=== PATIENT | female | born 1965 | race Caucasian/White ===

== ENCOUNTER → 2017-02-26 | Outpatient (CLI) | payer OTHER | LOC: M OUTALCOH 08:28 | PROVIDERS: ATTEND Psychiatry & Neurology Psychiatry | DX: Z71.41 Alcohol abuse counseling and surveillance of alcoholic (principal); F10.20 Alcohol dependence, uncomplicated ==

== ENCOUNTER 2017-03-06 09:00 | Outpatient (RCR) | payer MEDICAID, OTHER | END 2017-04-03 | LOC: M OUTALCOH 03-13 14:00 | DX: F10.20 Alcohol dependence, uncomplicated (principal) ==

== ENCOUNTER → 2017-05-27 | Outpatient (CLI) | payer MEDICAID | LOC: M OUTALCOH 15:28 | DX: F10.20 Alcohol dependence, uncomplicated (principal) ==

== ENCOUNTER 2017-06-03 10:48 | Outpatient (RCR) | payer MEDICAID | END 2017-06-04 | LOC: M OUTALCOH 10:48 | DX: F10.20 Alcohol dependence, uncomplicated (principal) ==

== ENCOUNTER 2017-06-12 14:00 | Outpatient (RCR) | payer MEDICAID | END 2017-07-02 | LOC: M OUTALCOH 06-16 08:45 | DX: F10.20 Alcohol dependence, uncomplicated (principal) ==

== ENCOUNTER 2017-07-04 09:14 | Outpatient (RCR) | payer MEDICAID | END 2017-08-02 | LOC: M OUTALCOH 09:14 | DX: F10.20 Alcohol dependence, uncomplicated (principal) | CPT/HCPCS: 90834 ==

== ENCOUNTER 2017-08-04 14:07 | Outpatient (RCR) | payer MEDICAID | END 2017-09-01 | LOC: M OUTALCOH 14:07 | DX: F10.20 Alcohol dependence, uncomplicated (principal) | CPT/HCPCS: 90834 ==

== ENCOUNTER 2017-09-02 09:18 | Outpatient (RCR) | payer MEDICAID | END 2017-10-02 | LOC: M OUTALCOH 09:18 | DX: F10.20 Alcohol dependence, uncomplicated (principal) ==

== ENCOUNTER 2017-10-03 13:19 | Outpatient (RCR) | payer MEDICAID | END 2017-11-01 | LOC: M OUTALCOH 10-06 09:00 | DX: F10.20 Alcohol dependence, uncomplicated (principal) ==

== ENCOUNTER 2017-11-03 14:30 | Outpatient (RCR) | payer MEDICAID, OTHER | END 2017-12-02 | LOC: M OUTALCOH 11-14 16:00 | DX: F10.20 Alcohol dependence, uncomplicated (principal) ==

== ENCOUNTER → 2017-12-12 | Outpatient (CLI) | payer OTHER | LOC: M WUC 14:57 | DX: R07.81 Pleurodynia (principal) | CPT/HCPCS: 71101 ==

== ENCOUNTER → 2017-12-12 | Outpatient (REF) | payer OTHER ==
[2017-12-12 19:25] LABS: BASO % 0.2 % (0.0-1.0); EOS # 0.1 10^3/uL (0.0-0.50); EOS % 0.7 % (0.0-3.0); HEMOGLOBIN 12.7 g/dl (12.0-15.5); IMMATURE GRANULOCYTE % 0.2 % (0-3.0); LYMPH # 2.3 10^3/uL (1.5-4.5); LYMPH % 25.5 % (24.0-44.0); MEAN CORPUSCULAR HEMOGLOBIN 29.3 pg (27.0-33.0); MEAN CORPUSCULAR HGB CONC 33.4 g/dl (32.0-36.5); MEAN CORPUSCULAR VOLUME 87.8 fl (80.0-96.0); MONO # 0.6 10^3/uL (0.0-0.8); MONO % 6.1 % (0.0-5.0); NEUTROPHILS # 6.1 10^3/uL (1.8-7.7); NEUTROPHILS % 67.3 % (36.0-66.0); PLATELET COUNT, AUTOMATED 219 10^3/uL (150-450); RED BLOOD COUNT 4.33 10^6/uL (4.00-5.40); RED CELL DISTRIBUTION WIDTH 13.3 % (11.5-14.5); WHITE BLOOD COUNT 9.1 10^3/uL (4.0-10.0)
[2017-12-12 19:28] LABS: ALBUMIN/GLOBULIN RATIO 1.21 (1.00-1.93); ALKALINE PHOSPHATASE 69 U/L (45-117); ALT/SGPT 29 U/L (12-78); ANION GAP 6 MEQ/L (8-16); AST/SGOT 20 U/L (7-37); BILIRUBIN,TOTAL 0.5 MG/DL (0.2-1.0); BLOOD UREA NITROGEN 12 MG/DL (7-18); CARBON DIOXIDE LEVEL 29 MEQ/L (21-32); CHLORIDE LEVEL 105 MEQ/L (98-107); CREATININE FOR GFR 0.73 MG/DL (0.55-1.30); GLOMERULAR FILTRATION RATE > 60.0 (>51); GLUCOSE, FASTING 92 MG/DL (70-100); POTASSIUM SERUM 4.4 MEQ/L (3.5-5.1); SODIUM LEVEL 140 MEQ/L (136-145); TOTAL PROTEIN 7.3 GM/DL (6.4-8.2)
== END ==
LOC: M LAB REF 16:54
DX: F10.10 Alcohol abuse, uncomplicated (principal); E03.9 Hypothyroidism, unspecified

== ENCOUNTER 2018-01-12 09:14 | Outpatient (RCR) | payer OTHER | END 2018-02-01 | LOC: M OUTALCOH 01-19 16:00 | DX: F10.20 Alcohol dependence, uncomplicated (principal) ==

== ENCOUNTER 2018-02-02 11:14 | Outpatient (RCR) | payer OTHER | END 2018-03-04 | LOC: M OUTALCOH 02-09 16:00 | DX: F10.20 Alcohol dependence, uncomplicated (principal) ==

== ENCOUNTER 2018-03-12 15:30 | Outpatient (RCR) | payer OTHER | END 2018-04-03 | LOC: M OUTALCOH 15:30 | DX: F10.20 Alcohol dependence, uncomplicated (principal) ==

== ENCOUNTER 2018-05-28 09:30 | Outpatient (RCR) | payer OTHER | END 2018-06-04 | LOC: M OUTALCOH 09:30 | PROVIDERS: ATTEND Psychiatry & Neurology Psychiatry | DX: F10.20 Alcohol dependence, uncomplicated (principal) ==

== ENCOUNTER 2018-06-24 10:57 | Outpatient (RCR) | payer OTHER | END 2018-07-02 | LOC: M OUTALCOH 10:57 | PROVIDERS: ATTEND Psychiatry & Neurology Psychiatry | DX: F10.20 Alcohol dependence, uncomplicated (principal) ==

== ENCOUNTER → 2018-06-30 | Outpatient (CLI) | payer OTHER | LOC: M OUTALCOH 09:24 | PROVIDERS: ATTEND Psychiatry & Neurology Psychiatry | DX: Z13.9 Encounter for screening, unspecified (principal) ==

== ENCOUNTER 2018-07-29 16:00 | Outpatient (RCR) | payer OTHER | END 2018-08-02 | LOC: M OUTALCOH 16:00 | PROVIDERS: ATTEND Psychiatry & Neurology Psychiatry | DX: F10.20 Alcohol dependence, uncomplicated (principal) ==

== ENCOUNTER → 2019-02-11 | Outpatient (CLI) | payer OTHER ==
--- NOTE | 2019-02-11 11:19 | REP ---
PA and lateral chest: Comparisons are 12/12/2017 and 12/21/2023. The lung flores are chronically hyperinflated, unchanged, but otherwise clear. Cardiac size is normal. The yulisa, mediastinum, skeletal structures are unremarkable. Impression: Negative PA and lateral chest except for chronic hyperinflation. There is no change from the comparison studies. Electronically Signed by Chris Barlow MD 02/11/2019 11:10 A
== END ==
LOC: M WUC 10:54
PROVIDERS: ATTEND Nurse Practitioner Adult Health
DX: J18.9 Pneumonia, unspecified organism (principal)

== ENCOUNTER → 2019-04-29 | Outpatient (CLI) | payer OTHER ==
--- NOTE | 2019-04-29 09:06 | REPMRS ---
Patient History The patient states she had a clinical breast exam in April 2019. No known family history of cancer. 3D TOMOSYNTHESIS WAS PERFORMED. [facility] lifetime [facility] for [facility] is 10.5%. Digital Mammo Screening Bilat: April 29, 2019 - Exam #: [id number] Bilateral CC and MLO view(s) were taken. Technologist: Veronique Magallanes, Technologist Prior study comparison: April 05, 2016, bilateral digital mammo screening bilat performed at [facility]. FINDINGS: The breast tissue is heterogeneously dense. This may lower the sensitivity of mammography. There has been no change in the appearance of the mammogram from the prior studies. There is a moderate amount of residual fibroglandular tissue which is fairly symmetric. There is no interval development of dominant mass, areas of architectural distortion, or clustered microcalcification typical of malignancy. Assessment: BI-RADS/ACR category 1 mammogram. Negative Mammogram. Recommendation Routine screening mammogram in 1 year (for women over age 40). This mammogram was interpreted with the aid of an FDA-approved computer-aided dectection system. Electronically Signed By: Chris Oviedo MD 04/29/19 0952
== END ==
LOC: M RAD 08:08
PROVIDERS: ATTEND Nurse Practitioner Adult Health
DX: Z12.31 Encounter for screening mammogram for malignant neoplasm of breast (principal)

== ENCOUNTER → 2019-04-29 | Outpatient (CLI) | payer OTHER ==
--- NOTE | 2019-04-29 09:37 | REP ---
ULTRASOUND ABDOMEN: Real-time sonographic evaluation of the abdomen was performed. Gallbladder demonstrates no evidence of intraluminal sludge or calculi, wall thickening, or pericholecystic fluid. There is no intrahepatic or extrahepatic biliary dilatation, common bile duct measuring 6 mm. The liver and pancreas demonstrates no gross mass. Spleen is normal in size with no intrinsic abnormality, length us 6.8 cm. Kidneys are normal in size and echotexture, right kidney measuring 11.7 x 5.4 x 4.0 cm and left kidney 11.9 x 5.1 x 6.7 cm. There is no renal mass, hydronephrosis. Abdominal aorta demonstrates mild atherosclerotic plaquing with no aneurysm. There is ectasia of the mid aspect 2.8 cm maximum AP diameter. Proximally the abdominal aorta has a maximum AP diameter of 2.5 cm and distally 2.0 cm. There is no ascites. IMPRESSION: Essentially negative abdominal ultrasound. Electronically Signed by Chris Oviedo MD 04/29/2019 12:28 P
== END ==
LOC: M RAD 08:04
PROVIDERS: ATTEND Surgery
DX: R19.5 Other fecal abnormalities (principal); K44.9 Diaphragmatic hernia without obstruction or gangrene

== ENCOUNTER → 2019-05-14 | Outpatient (CLI) | payer OTHER ==
--- NOTE | 2019-05-14 10:07 | REP ---
ULTRASOUND ANTERIOR ABDOMINAL WALL: Real-time sonographic evaluation of the anterior wall performed in the region of the umbilicus for a suspected hernia. There is a defect in the midline of the abdominal wall at the umbilicus. Diameter of defect is about 11 mm. There is herniation of peritoneal fat into the anterior abdominal but no bowel is present. Hernia is nonreducible. There is no significant change with Valsalva maneuver. IMPRESSION: Umbilical hernia contains fat but no bowel. Defect is approximately 1 cm in diameter. Electronically Signed by Chris Oviedo MD 05/15/2019 03:12 P
== END ==
LOC: M RAD 08:54
PROVIDERS: ATTEND Surgery
DX: K42.0 Umbilical hernia with obstruction, without gangrene (principal)

== ENCOUNTER → 2019-06-10 | Outpatient (CLI) | payer OTHER ==
[~2019-06-10] MED LIST: ACAM0.05 PO; ALBU8.5H INH; BUSP1TAB PO; DULO1CAP6 PO; LEVO175T2 PO; NALT50TA4 PO; NEUR600T PO; PRAV10TA3 PO; TRAZ-257 PO
--- NOTE | 2019-06-11 20:04 | ECGEPIP ---
[facility] Test Date: 2019-06-10 Pat Name: IDALIA CHRISTINE Department: Room: - Gender: Female Sheep Sticker: MARTY : [id number] Requested By: JAN Fofana Order Number: [id number] Reading MD: Linden Carrera Measurements Intervals [place] Rate: 73 P: 77 AK: 168 QRS: 95 QRSD: 109 T: 60 QT: 392 QTc: 433 Interpretive Statements SINUS RHYTHM BORDERLINE RIGHT AXIS DEVIATION NO PRIOR Electronically Signed on 06-11-2019 20:04:23 EST by Linden Carrera
== END ==
LOC: M EKG 09:56
PROVIDERS: ATTEND Surgery
DX: E03.9 Hypothyroidism, unspecified (principal)

== ENCOUNTER 2019-06-14 10:25 | Day surgery (SDC) | payer OTHER ==
[~2019-06-14] VITALS: Ht 167.6 cm; Wt 62.1 kg
[~2019-06-14 10:25] MED LIST changes: +ACETAMINOPHEN 1000MG 100ML IV BTL (OFIRMEV) (J0131 PER 10MG) As Ordered ONE; +LIDOCAINE 1% MDV 20ML VIAL SQ PRN; +LIDOCAINE 2% INJ 100 MG/5 ML SDV (FOR ANES.) As Ordered ONE; +LR 1,000 ML IV ONE; +MIDAZOLAM INJ 2 MG/2 ML VIAL (J2250) As Ordered ONE; +ONDANSETRON 4MG/2ML VIAL (J2405) As Ordered ONE; +ROCURONIUM BROMIDE 50 MG/5 ML VIAL As Ordered ONE; +SUGAMMADEX SODIUM 500 MG/5 ML VIAL (BRIDION) As Ordered ONE; +ceFAZolin SOD 2 GM in IV 1 EA IV ONE; +dexameTHASONE 4 MG/ML 1ML VIAL (J1100) As Ordered ONE; +fentaNYL 250 MCG/5 ML INJECTION (J3010) As Ordered ONE; +propofoL 200 MG/20 ML VIAL As Ordered ONE
[2019-06-14] MEDS ORDERED: BUPIVACAINE/EPIN 0.25% 30 ML VIAL As Ordered ONE (11:28)
[2019-06-14] MEDS ORDERED: PHENYLephrine HCL 500 MCG/5 ML (100MCG/ML) SYRINGE (J2370) As Ordered ONE (12:43)
[2019-06-14] MEDS ORDERED: ePHEDrine SULFATE 25 MG/5 ML(5MG/ML) SYRINGE As Ordered ONE (12:43)
--- NOTE | 2019-06-14 13:22 | RO ---
DATE OF PROCEDURE: 06/14/2019 PREOPERATIVE DIAGNOSIS: Incarcerated umbilical hernia. POSTOPERATIVE DIAGNOSIS: Incarcerated umbilical hernia. PROCEDURE: Robotic repair of incarcerated umbilical hernia. SURGEON: Chris Pan DO ASSIST: Doreen Márquez ANESTHESIA: General. ESTIMATED BLOOD LOSS (EBL): 5. COMPLICATION: None. INDICATIONS FOR THE PROCEDURE: The patient is a 53-year-old female who presents with periumbilical lump and slight tenderness, found to have an incarcerated hernia there after obtaining an ultrasound. Recommendation was to proceed with robotic repair. The risks and benefits of the procedure not limited to but including bleeding, infection, hernia recurrence, hernia formation, damage to surrounding structures, need for further surgery were discussed in detail with the patient. Informed was obtained, and procedure was planned. DESCRIPTION OF PROCEDURE: The patient brought back to operating room #7. After sufficient sedation, the abdomen was sterilely prepped and draped. Next, time-out was done to confirm proper patient and proper procedure. Following that, an 8-mm incision was made in the left lower quadrant. A Veress needle was inserted, and the abdomen was insufflated to 50 mmHg. Next, the Veress needle was removed. An 8-mm robotic Optiview port was used to gain access to the abdomen. Once the abdomen was entered, two more ports were placed, one just off to left of midline subxiphoid and one in the right upper quadrant. Once the ports were placed, the robot was docked to the ports. Next, from the console, there was no obvious hernia identified intraperitoneally. I made a horizontal incision into the peritoneum superior to the umbilicus. After dissecting through wall of preperitoneal fat and reaching the fascia, I dissected inferiorly along the fascia until the hernia was identified. There was a large amount of preperitoneal fat that was all incarcerated into a hernia sac. Once all of this was completely reduced and removed, the fascial defect was about 1.5 cm in diameter, this was closed with a running #1 Stratafix suture. This was then covered with a 3 x 7 cm ProGrip mesh all along the fascia tucked inside of a preperitoneal pocket. Once the mesh was in place, the peritoneum was closed with a running 2-0 V-Loc suture, thus ending that portion of the procedure. The abdomen was then desufflated, ports were removed. Skin incisions were closed with 4-0 Vicryl subcuticular sutures. The abdomen was cleaned and dried. Steri-Strips, 4 x 4, and tape were applied, thus ending the procedure.
[2019-06-14] MEDS ORDERED: oxyCODONE 5MG TAB As Ordered ONE (13:26)
[2019-06-14] MEDS ORDERED: NORCO, ANEXSIA 5/325MG TABLET (HYDROcodone/ACETAMINOPHEN) PO PRN (13:30)
[2019-06-14] MEDS ORDERED: fentaNYL 100 MCG/2 ML INJECTION (J3010) IV PRN (13:30)
[2019-06-14] MEDS ORDERED: oxyCODONE 5MG TAB PO PRN (13:30)
[2019-06-14] MEDS ORDERED: ONDANSETRON 4MG/2ML VIAL (J2405) IV PRN (13:30)
[2019-06-14] MEDS ORDERED: LR 1,000 ML IV SCH (13:30)
[2019-06-14 14:40] VITALS: BP 113/66
== END 2019-06-14 14:58 | disposition home or self-care (01) ==
LOC: M SDC 10:25
PROVIDERS: ATTEND Surgery
DX: K42.0 Umbilical hernia with obstruction, without gangrene (principal); E03.9 Hypothyroidism, unspecified; F41.9 Anxiety disorder, unspecified; F32.9 Major depressive disorder, single episode, unspecified; F17.218 Nicotine dependence, cigarettes, with other nicotine-induced disorders; Z79.899 Other long term (current) drug therapy
CPT/HCPCS: 49653; C1781; J0131; J0690; J1100; J2250; J2370; J2405; J3010

== ENCOUNTER → 2019-08-30 | Outpatient (CLI) | payer OTHER ==
[~2019-08-30] MED LIST changes: -ACETAMINOPHEN 1000MG 100ML IV BTL (OFIRMEV) (J0131 PER 10MG) As Ordered ONE; +ISOVUE-370 76% 100ML VIAL As Ordered ONE; -LIDOCAINE 1% MDV 20ML VIAL SQ PRN; -LIDOCAINE 2% INJ 100 MG/5 ML SDV (FOR ANES.) As Ordered ONE; -LR 1,000 ML IV ONE; -MIDAZOLAM INJ 2 MG/2 ML VIAL (J2250) As Ordered ONE; -ONDANSETRON 4MG/2ML VIAL (J2405) As Ordered ONE; -ROCURONIUM BROMIDE 50 MG/5 ML VIAL As Ordered ONE; -SUGAMMADEX SODIUM 500 MG/5 ML VIAL (BRIDION) As Ordered ONE; -ceFAZolin SOD 2 GM in IV 1 EA IV ONE; -dexameTHASONE 4 MG/ML 1ML VIAL (J1100) As Ordered ONE; -fentaNYL 250 MCG/5 ML INJECTION (J3010) As Ordered ONE; -propofoL 200 MG/20 ML VIAL As Ordered ONE
--- NOTE | 2019-08-31 19:13 | REP ---
Clinical: General abdominal pain. Technique: Axial contrast enhanced images from the lung bases to the pubic symphysis using oral (per protocol) and 100 ml Isovue 370 intravenous contrast material with coronal and sagittal re-formations as well as delayed images of the abdomen. Comparison: None. Findings: Liver, spleen, pancreas, gallbladder, left kidney and bilateral adrenal glands are essentially normal. The right kidney demonstrates moderate grade hydronephrosis and mild hydroureter which may be secondary to extrinsic ureteral compression from significantly abnormal appearing bowel in the right lower quadrant. There is mucosal thickening of the proximal ascending colon as well as significantly irregular appearance to the cecum as well as suggestions for irregular appearance to the right lower quadrant terminal ileum. Few small mildly prominent right lower quadrant lymph nodes are also identified. Clinical and physical correlation is required to exclude the possibility of infectious/inflammatory cecitis versus malignancy. Remainder of the small and large bowel is grossly unremarkable. Further evaluation the pelvis demonstrates relatively normal bladder and age-appropriate uterus/adnexa. No significant ascites. No obvious retroperitoneal adenopathy. No free air. Atherosclerotic changes to the aorta and vasculature noted without aneurysm or dissection. Musculoskeletal structures demonstrate age-related changes without focal osseous abnormality. Lung bases are essentially clear. Impression: 1. Irregular appearance to the cecum as well as the associated proximal ascending colon and terminal ileum with small nonspecific adjacent lymph nodes. Differential diagnosis includes infectious/inflammatory process including cecitis as well as malignancy. GI consultation along with colonoscopy and barium enema/small bowel follow-through examinations may be warranted. 2. Mild/moderate right renal hydronephrosis and mild hydroureter which appears to be secondary to extrinsic compression from the above mentioned bowel changes in the right lower quadrant. Electronically Signed by Roe Hernandez MD 08/31/2019 07:04 P
== END ==
LOC: M RAD 13:29
PROVIDERS: ATTEND Nurse Practitioner Adult Health
DX: R10.9 Unspecified abdominal pain (principal)
CPT/HCPCS: 74177; Q9967

== ENCOUNTER → 2019-09-17 | Outpatient (CLI) | payer OTHER ==
[~2019-09-17] MED LIST changes: -ISOVUE-370 76% 100ML VIAL As Ordered ONE
--- NOTE | 2019-09-17 16:37 | REP ---
RENAL ULTRASOUND: Real-time sonographic evaluation of the kidneys performed. Kidneys are normal in size and echotexture, right kidney measuring 12.2 x 5.0 x 6.0 cm and left kidney 12.6 x 6.8 x 4.9 cm. There is no renal mass or hydronephrosis seen. Urinary bladder is mildly distended and grossly unremarkable. Ureteral jets could not be seen in the urinary bladder with Doppler color evaluation. IMPRESSION: No hydronephrosis. Negative renal ultrasound. Electronically Signed by Chris Oviedo MD 09/17/2019 04:41 P
== END ==
LOC: M LRY 13:51
PROVIDERS: ATTEND Nurse Practitioner Adult Health
DX: N13.30 Unspecified hydronephrosis (principal)

== ENCOUNTER → 2019-10-26 | Outpatient (CLI) | payer OTHER | LOC: M OUTALCOH 08:01 | PROVIDERS: ATTEND Psychiatry & Neurology Addiction Medicine | DX: F10.20 Alcohol dependence, uncomplicated (principal) ==

== ENCOUNTER → 2019-12-03 | Outpatient (RCR) | payer OTHER | LOC: M OUTALCOH 11-15 08:37 | PROVIDERS: ATTEND Psychiatry & Neurology Addiction Medicine | DX: F10.20 Alcohol dependence, uncomplicated (principal); F17.200 Nicotine dependence, unspecified, uncomplicated ==

== ENCOUNTER → 2020-01-03 | Outpatient (RCR) | payer OTHER | LOC: M OUTALCOH 12-24 10:00 | PROVIDERS: ATTEND Psychiatry & Neurology Addiction Medicine | DX: F10.20 Alcohol dependence, uncomplicated (principal); F17.200 Nicotine dependence, unspecified, uncomplicated ==

== ENCOUNTER 2020-01-28 08:45 | Outpatient (RCR) | payer OTHER | END 2020-02-02 | LOC: M OUTALCOH 08:45 | PROVIDERS: ATTEND Psychiatry & Neurology Addiction Medicine | DX: F10.20 Alcohol dependence, uncomplicated (principal); F17.200 Nicotine dependence, unspecified, uncomplicated ==

== ENCOUNTER → 2020-06-22 | Outpatient (CLI) | payer OTHER ==
--- NOTE | 2020-06-22 18:37 | REP ---
INDICATION: PAIN COMPARISON: None. TECHNIQUE: AP, lateral, flexion/extension, bilateral oblique, and open-mouth views. FINDINGS: Moderate multilevel degenerative changes include endplate sclerosis, minimal disc space narrowing, and minimal anterior spurring. Very subtle anterolisthesis at C5-6 of approximately 2 mm is suggested. No acute fracture/compression injury or subluxation. Oblique views demonstrate facet arthropathy. Open mouth view demonstrates normal C1-C2 articulation and odontoid process. IMPRESSION: Moderate multilevel degenerative spondylosis. <Electronically signed by Roe Hernandez > 06/22/20 [id number]
--- NOTE | 2020-06-22 18:46 | REP ---
INDICATION: PAIN COMPARISON: None. TECHNIQUE: Internal rotation, external rotation, and Y view. FINDINGS: No acute fracture or dislocation. The acromioclavicular and glenohumeral joints are intact. No periarticular calcifications or degenerative changes are appreciated. Sub acromial space is normal. Surrounding soft tissues are unremarkable. IMPRESSION: Normal left shoulder radiographs. <Electronically signed by Roe Hernandez > 06/22/20 [id number]
== END ==
LOC: M WUC 11:26
PROVIDERS: ATTEND Nurse Practitioner Adult Health
DX: M51.9 Unspecified thoracic, thoracolumbar and lumbosacral intervertebral disc disorder (principal); M25.512 Pain in left shoulder

== ENCOUNTER → 2020-11-23 | Outpatient (REF) | payer OTHER ==
[2020-11-23 18:05] LABS: AMYLASE 50 U/L (25-115); LIPASE 192 U/L (73-393)
== END ==
LOC: M LAB REF 17:11
PROVIDERS: ATTEND Physician Assistant Medical
DX: R10.9 Unspecified abdominal pain (principal)

== ENCOUNTER → 2021-09-04 | Outpatient (REF) | payer OTHER ==
[2021-09-04 18:00] LABS: FOLATE > 24.0 NG/ML; VITAMIN B12 LEVEL 883 PG/ML
== END ==
LOC: M LAB REF 16:16
PROVIDERS: ATTEND Physician Assistant Medical
DX: F10.11 Alcohol abuse, in remission (principal)

== ENCOUNTER 2022-03-14 14:53 | Inpatient (IN) | payer OTHER ==
[~2022-03-14] VITALS: Ht 167.6 cm; Wt 63.1 kg
[2022-03-14] MEDS: MULTIVITAMINS/MINERALS THERAP 1 TAB PO SCH (09:00)
[2022-03-14] MEDS: FOLIC ACID 1MG TAB PO SCH (09:00)
[2022-03-14] MEDS ORDERED: NS 1,000 ML IV ONE ×2 (15:20→19:00)
[2022-03-14] MEDS ORDERED: PANTOPRAZOLE 40MG VIAL IV ONE (15:20)
[2022-03-14] MEDS ORDERED: SUCRALFATE SUSP 1GM/10ML UD PO ONE (15:20)
[2022-03-14] MEDS ORDERED: GI COCKTAIL 50ML BTL(HYOSCYAMINE/MAALOX/LIDOCAINE VISCOUS)(1:3:1) PO ONE (15:20)
[2022-03-14] MEDS ORDERED: ONDANSETRON 4MG 2ML VIAL IV ONE (15:20)
[2022-03-14 15:22] LABS: BASO # 0.1 10^3/uL (0.0-0.2); BASO % 0.4 % (0.0-1.0); EOS # 0.1 10^3/uL (0.0-0.5); EOS % 0.6 % (0.0-3.0); HEMATOCRIT 45.3 % (36.0-47.0); HEMOGLOBIN 15.4 g/dl (12.0-15.5); LYMPH # 2.3 10^3/uL (1.5-5.0); LYMPH % 15.5 % (24.0-44.0); MEAN CORPUSCULAR HEMOGLOBIN 32.8 pg (27.0-33.0); MEAN CORPUSCULAR VOLUME 96.6 fl (80.0-96.0); MONO % 6.8 % (2.0-8.0); NEUTROPHILS # 11.1 10^3/uL (1.5-8.5); NEUTROPHILS % 76.3 % (36.0-66.0); PLATELET COUNT, AUTOMATED 248 10^3/uL (150-450); RED BLOOD COUNT 4.69 10^6/uL (4.00-5.40); WHITE BLOOD COUNT 14.5 10^3/uL (4.0-10.0)
[2022-03-14 15:51] LABS: INR 0.97; PROTHROMBIN TIME 13.1 SECONDS (12.5-14.5)
[2022-03-14] MEDS ORDERED: MORPHINE 4 MG/ML 1ML VIAL/SYRINGE IV ONE (16:15)
[2022-03-14 16:24] LABS: CK-MB VALUE MASS 1.5 NG/ML (<3.6); MB/CK RELATIVE INDEX 1.52 (< OR =4)
[2022-03-14 16:26] LABS: ALT/SGPT 90 U/L (12-78); BILIRUBIN,DIRECT 0.1 MG/DL (0.0-0.2); BILIRUBIN,TOTAL 0.4 MG/DL (0.2-1.0); BLOOD UREA NITROGEN 5 MG/DL (7-18); CARBON DIOXIDE LEVEL 28 MEQ/L (21-32); CHLORIDE LEVEL 103 MEQ/L (98-107); CREATININE FOR GFR 0.52 MG/DL (0.55-1.30); ETHYL ALCOHOL (ETHANOL) 0.284 % (0.000-0.010); FREE T4 0.58 NG/DL (0.76-1.46); GLOMERULAR FILTRATION RATE > 60.0 (>51); GLUCOSE, FASTING 100 MG/DL (70-100); LIPASE 200 U/L (73-393); NT-PRO BNP 31 PG/ML (<125); POTASSIUM SERUM 3.9 MEQ/L (3.5-5.1); SODIUM LEVEL 137 MEQ/L (136-145); TOTAL PROTEIN 8.1 GM/DL (6.4-8.2)
[2022-03-14 17:02] LABS: RSV AMPLIFICATION NEGATIVE (NEGATIVE)
[2022-03-14] MEDS ORDERED: cefTRIAXone SOD 2 GM in D5W MINI-BAG PLUS 50 ML IV ONE (17:15)
[2022-03-14 17:16] LABS: CK-MB VALUE MASS 1.3 NG/ML (<3.6); MB/CK RELATIVE INDEX 0.72 (< OR =4)
[2022-03-14] MEDS ORDERED: KETOROLAC 30 MG/ML 1ML VIAL IV ONE (17:20)
[2022-03-14] MEDS ORDERED: AZITHROMYCIN INJ 500 MG, VIAL MATE ADAPTER 1 EACH in NS 250 ML IV ONE (17:45)
[2022-03-14] MEDS ORDERED: IPRATROPIUM 0.5MG/ALBUTEROL 2.5MG INH SOL UD 3ML (DUONEB) NEB PRN (18:00)
[2022-03-14] MEDS: **hydrALAZINE** 10 MG TAB PO SCH ×2 (18:00→23:31)
[2022-03-14] MEDS: cloNIDine 0.1MG TABLET PO SCH ×2 (18:00→23:39)
[2022-03-14] MEDS ORDERED: TREL1AER INH (18:36)
[2022-03-14] MEDS ORDERED: MULT-90 PO (18:36)
[2022-03-14] MEDS ORDERED: LEVO150T7 PO (18:36)
[2022-03-14] MEDS ORDERED: HOME MED LIST COMPLETE! XX SCH (18:40)
[2022-03-14] MEDS: OXAZEPAM 15MG CAP PO SCH ×2 (18:48→23:39)
[2022-03-14] MEDS ORDERED: LORazepam 2 MG/ML VIAL IV STA (18:58)
[2022-03-14] MEDS ORDERED: LORazepam 2 MG TAB PO PRN (19:00)
[2022-03-14] MEDS ORDERED: ISOVUE-370 76% 100ML VIAL As Ordered ONE (19:34)
[2022-03-14] MEDS: IPRATROPIUM 0.5MG/ALBUTEROL 2.5MG INH SOL UD 3ML (DUONEB) NEB SCH (20:22)
[2022-03-14] MEDS: SUCRALFATE 1 GM TAB PO SCH (21:19)
[2022-03-14] MEDS: NICOTINE 21MG/24HR 1 EA TRANSDERMAL TD SCH (21:19)
[2022-03-14] MEDS: THIAMINE 100 MG TAB PO SCH (21:20)
[2022-03-14] MEDS: PANTOPRAZOLE 40MG VIAL IV SCH (21:20)
[2022-03-14] MEDS: DOXYCYCLINE HYCLATE 100 MG in D5W MINI-BAG PLUS 100 ML IV SCH (21:20)
[2022-03-14 21:44] LABS: MB/CK RELATIVE INDEX 1.27 (< OR =4)
[2022-03-14 23:00] VITALS: BP 117/67
[2022-03-14 23:27] VITALS: BP 118/80
[2022-03-14] MEDS: LORazepam 2 MG TAB PO PRN (23:40)
[2022-03-14 23:47] LABS: AMPHETAMINES LEVEL URINE NEGATIVE (NEGATIVE); BARBITURATES URINE NEGATIVE (NEGATIVE); BENZODIAZEPINES URINE NEGATIVE (NEGATIVE); CANNABINOIDS URINE NEGATIVE (NEGATIVE); COCAINE METABOLITE URINE NEGATIVE (NEGATIVE); METHADONE URINE NEGATIVE (NEGATIVE); OPIATES URINE POSITIVE (NEGATIVE); PHENCYCLIDINE URINE NEGATIVE (NEGATIVE)
[2022-03-15] VITALS (10 sets, daily range): BP systolic 80–126; BP diastolic 42–79
[2022-03-15] MEDS ORDERED: NS 1,000 ML IV ONE ×3 (01:30→08:35)
[2022-03-15 03:46] LABS: CK-MB VALUE MASS < 1.0 NG/ML (<3.6); CPK CREATINE PHOSPHOKINASE 66 U/L (26-192); MB/CK RELATIVE INDEX 1.52 (< OR =4)
[2022-03-15] MEDS: OXAZEPAM 15MG CAP PO SCH ×4 (05:17→23:14)
[2022-03-15] MEDS: **hydrALAZINE** 10 MG TAB PO SCH ×4 (05:51→23:13)
[2022-03-15] MEDS: cloNIDine 0.1MG TABLET PO SCH (05:51)
[2022-03-15] MEDS: IPRATROPIUM 0.5MG/ALBUTEROL 2.5MG INH SOL UD 3ML (DUONEB) NEB SCH ×4 (07:37→21:00)
[2022-03-15] MEDS ORDERED: FLUBLOK(EGG FREE)(QUAD)INFLUENZA VACC 0.5ML SYRINGE 18YRS & OLDER IM.IMMUN ONE (09:00)
[2022-03-15] MEDS: LEVOTHYROXINE 150MCG TABLET (0.15MG) PO SCH (09:20)
[2022-03-15] MEDS: SUCRALFATE 1 GM TAB PO SCH ×4 (09:20→20:34)
[2022-03-15] MEDS: FOLIC ACID 1MG TAB PO SCH (09:20)
[2022-03-15] MEDS: MULTIVITAMINS/MINERALS THERAP 1 TAB PO SCH (09:20)
[2022-03-15] MEDS: THIAMINE 100 MG TAB PO SCH ×2 (09:20→20:34)
[2022-03-15] MEDS: DOXYCYCLINE HYCLATE 100 MG in D5W MINI-BAG PLUS 100 ML IV SCH (09:21)
[2022-03-15] MEDS: PANTOPRAZOLE 40MG VIAL IV SCH ×2 (09:21→20:35)
[2022-03-15] MEDS: cefTRIAXone SOD 2 GM in D5W MINI-BAG PLUS 50 ML IV SCH (09:21)
[2022-03-15 09:47] LABS: BASO % 0.2 % (0.0-1.0); EOS % 0.1 % (0.0-3.0); HEMATOCRIT 36.3 % (36.0-47.0); LYMPH # 1.3 10^3/uL (1.5-5.0); LYMPH % 7.8 % (24.0-44.0); MEAN CORPUSCULAR HEMOGLOBIN 33.4 pg (27.0-33.0); MEAN CORPUSCULAR HGB CONC 34.2 g/dl (32.0-36.5); MEAN CORPUSCULAR VOLUME 97.8 fl (80.0-96.0); MONO # 0.8 10^3/uL (0.0-0.8); NEUTROPHILS # 14.5 10^3/uL (1.5-8.5); NEUTROPHILS % 86.3 % (36.0-66.0); PLATELET COUNT, AUTOMATED 172 10^3/uL (150-450); RED BLOOD COUNT 3.71 10^6/uL (4.00-5.40); WHITE BLOOD COUNT 16.8 10^3/uL (4.0-10.0)
[2022-03-15 10:08] LABS: CK-MB VALUE MASS < 1.0 NG/ML (<3.6); CPK CREATINE PHOSPHOKINASE 70 U/L (26-192); HEMOGLOBIN 12.4 g/dl (12.0-15.5); MB/CK RELATIVE INDEX 1.43 (< OR =4)
[2022-03-15 10:11] LABS: ALBUMIN 2.8 GM/DL (3.2-5.2); ALT/SGPT 50 U/L (12-78); BILIRUBIN,TOTAL 0.7 MG/DL (0.2-1.0); BLOOD UREA NITROGEN 4 MG/DL (7-18); CALCIUM LEVEL 7.7 MG/DL (8.5-10.1); CARBON DIOXIDE LEVEL 28 MEQ/L (21-32); CHLORIDE LEVEL 103 MEQ/L (98-107); CREATININE FOR GFR 0.42 MG/DL (0.55-1.30); GLOMERULAR FILTRATION RATE > 60.0 (>51); GLUCOSE, FASTING 111 MG/DL (70-100); POTASSIUM SERUM 3.7 MEQ/L (3.5-5.1); SODIUM LEVEL 137 MEQ/L (136-145); TOTAL PROTEIN 5.7 GM/DL (6.4-8.2)
[2022-03-15] MEDS: DOXYCYCLINE HYCLATE 100MG TABLET PO SCH (20:34)
[2022-03-15] MEDS: NICOTINE 21MG/24HR 1 EA TRANSDERMAL TD SCH (20:36)
[2022-03-15] MEDS: LORazepam 2 MG TAB PO PRN (20:40)
[2022-03-15] MEDS ORDERED: OXAZEPAM 15MG CAP PO ONE (21:05)
[2022-03-16 00:10] VITALS: BP 126/79
[2022-03-16 04:00] VITALS: BP 140/83
[2022-03-16] MEDS: LEVOTHYROXINE 150MCG TABLET (0.15MG) PO SCH (05:19)
[2022-03-16] MEDS: OXAZEPAM 15MG CAP PO SCH (05:20)
[2022-03-16] MEDS: **hydrALAZINE** 10 MG TAB PO SCH (05:21)
[2022-03-16] MEDS ORDERED: ACETAMINOPHEN TAB 650MG DOSE (2X325MG) PO PRN (05:35)
[2022-03-16 06:00] VITALS: BP 138/78
[2022-03-16] MEDS: IPRATROPIUM 0.5MG/ALBUTEROL 2.5MG INH SOL UD 3ML (DUONEB) NEB SCH (07:31)
[2022-03-16 08:15] VITALS: BP 122/78
[2022-03-16] MEDS: MULTIVITAMINS/MINERALS THERAP 1 TAB PO SCH (08:15)
[2022-03-16] MEDS: FOLIC ACID 1MG TAB PO SCH (08:15)
[2022-03-16] MEDS: cefTRIAXone SOD 2 GM in D5W MINI-BAG PLUS 50 ML IV SCH (08:15)
[2022-03-16] MEDS: SUCRALFATE 1 GM TAB PO SCH (08:15)
[2022-03-16] MEDS: THIAMINE 100 MG TAB PO SCH (08:15)
[2022-03-16] MEDS: DOXYCYCLINE HYCLATE 100MG TABLET PO SCH (08:15)
[2022-03-16] MEDS: LORazepam 2 MG TAB PO PRN (08:27)
[2022-03-16] MEDS ORDERED: DOXY-444 PO (08:44)
[2022-03-16] MEDS ORDERED: LISI5TAB11 PO (08:44)
[2022-03-16] MEDS ORDERED: SELF1KIT MC (08:44)
[2022-03-16] MEDS ORDERED: NICO21PAT TD (08:44)
[2022-03-16] MEDS ORDERED: CEFD300C41 PO (08:44)
[2022-03-16] MEDS ORDERED: FOLI1TAB11 PO (08:45)
[2022-03-16] MEDS ORDERED: THIA100TA PO (08:45)
[2022-03-16] MEDS ORDERED: OXAZ30CA2 PO (08:46)
[2022-03-16 09:00] VITALS: BP 122/78
[2022-03-16] MEDS ORDERED: lisinopriL 5 MG TAB PO SCH (09:00)
[2022-03-16 09:15] LABS: BASO % 0.3 % (0.0-1.0); EOS # 0.1 10^3/uL (0.0-0.5); HEMATOCRIT 38.7 % (36.0-47.0); HEMOGLOBIN 12.8 g/dl (12.0-15.5); LYMPH # 1.3 10^3/uL (1.5-5.0); MEAN CORPUSCULAR HEMOGLOBIN 32.4 pg (27.0-33.0); MEAN CORPUSCULAR HGB CONC 33.1 g/dl (32.0-36.5); MONO # 0.5 10^3/uL (0.0-0.8); MONO % 5.2 % (2.0-8.0); NEUTROPHILS % 80.2 % (36.0-66.0); PLATELET COUNT, AUTOMATED 147 10^3/uL (150-450); RED BLOOD COUNT 3.95 10^6/uL (4.00-5.40); WHITE BLOOD COUNT 9.9 10^3/uL (4.0-10.0)
[2022-03-16 09:42] LABS: ALBUMIN 2.9 GM/DL (3.2-5.2); ALT/SGPT 41 U/L (12-78); BILIRUBIN,TOTAL 0.6 MG/DL (0.2-1.0); BLOOD UREA NITROGEN 3 MG/DL (7-18); CALCIUM LEVEL 8.5 MG/DL (8.5-10.1); CARBON DIOXIDE LEVEL 28 MEQ/L (21-32); CHLORIDE LEVEL 99 MEQ/L (98-107); CREATININE FOR GFR 0.41 MG/DL (0.55-1.30); GLOMERULAR FILTRATION RATE > 60.0 (>51); GLUCOSE, FASTING 101 MG/DL (70-100); POTASSIUM SERUM 3.2 MEQ/L (3.5-5.1); SODIUM LEVEL 133 MEQ/L (136-145); TOTAL PROTEIN 6.2 GM/DL (6.4-8.2)
== END 2022-03-16 10:02 | disposition home or self-care (01) | DRG 720 ==
LOC: M ED 16:20 → M ED INP 17:58 → ENRESERV 21:58 → M MSPAV 23:07
PROVIDERS: ADMIT General Practice; ATTEND General Practice
DX: A41.9 Sepsis, unspecified organism (principal); J96.01 Acute respiratory failure with hypoxia; J18.9 Pneumonia, unspecified organism; F10.10 Alcohol abuse, uncomplicated; I16.0 Hypertensive urgency; F17.210 Nicotine dependence, cigarettes, uncomplicated; E03.9 Hypothyroidism, unspecified; F41.9 Anxiety disorder, unspecified; F32.A Depression, unspecified; K29.20 Alcoholic gastritis without bleeding; Z79.899 Other long term (current) drug therapy; E78.5 Hyperlipidemia, unspecified

== ENCOUNTER → 2022-06-10 | Outpatient (CLI) | payer OTHER ==
[~2022-06-10] MED LIST changes: +CEFD300C41 PO; +DOXY-444 PO; +FOLI1TAB11 PO; +LEVO150T7 PO; +LISI5TAB11 PO; +MULT-90 PO; +NICO21PAT TD; +OXAZ30CA2 PO; +SELF1KIT MC; +THIA100TA PO; +TREL1AER INH
== END ==
LOC: M WUC 09:50
PROVIDERS: ATTEND Physician Assistant Medical
DX: J43.9 Emphysema, unspecified (principal)

== ENCOUNTER → 2022-07-19 | Outpatient (REF) | payer OTHER | LOC: M LAB REF 16:20 | PROVIDERS: ATTEND Physician Assistant Medical | DX: E03.9 Hypothyroidism, unspecified (principal) ==

== ENCOUNTER 2023-01-17 11:01 | Emergency (ER) | payer OTHER ==
[~2023-01-17] VITALS: Ht 167.6 cm; Wt 58.4 kg
[2023-01-17] MEDS ORDERED: MULTIVITAMIN -ADULT INJECTION 10 ML, THIAMINE INJection 100 MG, FOLIC ACID 1 MG in NS 1... IV ONE (11:45)
[2023-01-17 12:29] LABS: BASO % 0.6 % (0.0-1.0); EOS # 0.1 10^3/uL (0.0-0.5); EOS % 1.3 % (0.0-3.0); HEMATOCRIT 37.6 % (36.0-47.0); HEMOGLOBIN 12.7 g/dl (12.0-15.5); LYMPH # 1.2 10^3/uL (1.5-5.0); MEAN CORPUSCULAR HEMOGLOBIN 33.6 pg (27.0-33.0); MEAN CORPUSCULAR HGB CONC 33.8 g/dl (32.0-36.5); MEAN CORPUSCULAR VOLUME 99.5 fl (80.0-96.0); MONO # 0.8 10^3/uL (0.0-0.8); MONO % 16.1 % (2.0-8.0); NEUTROPHILS # 3.1 10^3/uL (1.5-8.5); NEUTROPHILS % 58.6 % (36.0-66.0); PLATELET COUNT, AUTOMATED 144 10^3/uL (150-450); RED BLOOD COUNT 3.78 10^6/uL (4.00-5.40); WHITE BLOOD COUNT 5.2 10^3/uL (4.0-10.0)
[2023-01-17 12:53] LABS: ALBUMIN 3.1 G/DL (3.2-5.2); BILIRUBIN,DIRECT 0.1 MG/DL (<0.4); BILIRUBIN,TOTAL 0.3 MG/DL (0.3-1.2); TOTAL PROTEIN 6.6 G/DL (5.7-8.2)
[2023-01-17] MEDS: LORazepam 2 MG TAB PO PRN ×2 (12:58→18:10)
[2023-01-17] MEDS ORDERED: NS 500 ML IV ONE (13:05)
[2023-01-17] MEDS ORDERED: ISOVUE-370 76% 100ML VIAL As Ordered ONE (13:13)
[2023-01-17] MEDS ORDERED: REGL10TA6 PO (20:00)
[2023-01-17 20:51] VITALS: BP 148/92; TEMP 98; O2SAT 96
== END 2023-01-17 20:54 | disposition home or self-care (01) ==
LOC: M ED 11:01
DX: A08.11 Acute gastroenteropathy due to Norwalk agent (principal); F17.200 Nicotine dependence, unspecified, uncomplicated; F10.10 Alcohol abuse, uncomplicated; Z79.52 Long term (current) use of systemic steroids; Z79.811 Long term (current) use of aromatase inhibitors; Z79.899 Other long term (current) drug therapy
CPT/HCPCS: 71046; 74177; 80047; 80076; 81001; 83605; 83690; 85025; 87040; 87507; 93005; 96365; 96366; 99285; J3411; Q9967

== ENCOUNTER → 2023-07-01 | Outpatient (REF) | payer OTHER, MEDICARE ==
[~2023-07-01] MED LIST changes: +CEFD1CAP9 PO; -CEFD300C41 PO; +REGL10TA6 PO
== END ==
LOC: M SFHCWAGY 17:40
PROVIDERS: ATTEND Nurse Practitioner Family
DX: Z12.4 Encounter for screening for malignant neoplasm of cervix (principal)

== ENCOUNTER → 2024-12-31 | Outpatient (REF) | payer OTHER, MEDICARE ==
[~2024-12-31] MED LIST changes: +DOXY-440 PO; -DOXY-444 PO; -PRAV10TA3 PO; +PRAV10TA43 PO
[2025-01-05 20:31] LABS: LYME TOTAL ANTIBODY CIA <= 0.90 Index (<=0.90)
== END ==
LOC: M LAB REF 13:48
PROVIDERS: ATTEND Physician Assistant Medical
DX: M79.10 Myalgia, unspecified site (principal)

== ENCOUNTER → 2025-04-12 | Outpatient (CLI) | payer OTHER | LOC: M WHC 14:12 | PROVIDERS: ATTEND Physician Assistant Medical | DX: Z12.31 Encounter for screening mammogram for malignant neoplasm of breast (principal); R92.333 Mammographic heterogeneous density, bilateral breasts ==